=== PATIENT | female | born 1990 ===

== ENCOUNTER 2016-12-24 09:14 | Observation (INO) | payer MEDICAID, OTHER ==
[2016-12-24 09:15] VITALS: BMI 20.9
--- NOTE | 2016-12-24 09:55 | ED PDOC ---
HPI: Abdomen Time Seen by Provider: 12/24/16 09:30 Chief Complaint (Nursing): Abdominal Pain Chief Complaint (Provider): Abdominal Pain History Per: Patient History/Exam Limitations: intoxication Onset/Duration Of Symptoms: Days (x 1) Current Symptoms Are (Timing): Still Present Location Of Pain/Discomfort: Suprapubic (lower abdomen) Additional History Per: Family (mother) Additional Complaint(s): Rebeca is a 26 y/o female with a history of anemia and low blood pressure who presents to the ED for abdominal pain after her mother found her in the street. The patient is 26 weeks , and is currently using heroin and crack. She eloped from the hospital where she was being seen for care. The patient complains of lower abdominal pain, denies vaginal bleeding, and offers no other medical complaints. Patient is in requesting detox and care. Of note: patient was seen in [facility] yesterday and was admitted at [facility]. Per patient's mother the patient eloped from [facility] this morning. PMD: None Provided : 5 Para: 3 (currently ) Past Medical History Reviewed: Historical Data, Nursing Documentation, Vital Signs Vital Signs: Last Vital Signs Temp 98.0 F 12/24/16 16:50 Pulse 84 12/24/16 16:50 Resp 18 12/24/16 16:50 BP 116/63 12/24/16 16:50 Pulse Ox 100 12/24/16 16:53 - Medical History PMH: Anemia Other PMH: low blood pressure - Family History Family History: States: Unknown Family Hx - Living Arrangements Living Arrangements: Other (homeless) - Social History Current smoker - smoking cessation education provided: Yes (2 cigarettes/day) Alcohol: None Drugs: Other (crack, heroin) - Immunization History Hx Tetanus Toxoid Vaccination: Yes Hx Influenza Vaccination: No Hx Pneumococcal Vaccination: No - Home Medications Home Medications: Ambulatory Orders Medication Instructions Recorded Nitrofurantoin Macrocrystals 100 mg PO BID #14 cap 12/24/16 [Macrobid] Multivit/Folic Acid/I 1 tab PO DAILY #30 tab 12/24/16 [] - Allergies Allergies/Adverse Reactions: Allergies Allergy/AdvReac Type Severity Reaction Status Date / Time No Known Allergies Allergy Verified 12/24/16 09:35 Review of Systems ROS Statement: Except As Marked, All Systems Reviewed And Found Negative Gastrointestinal: Positive for: Abdominal Pain (lower abdomen) Genitourinary Female: Negative for: Vaginal Bleeding Physical Exam - Reviewed Nursing Documentation Reviewed: Yes Vital Signs Reviewed: Yes - Physical Exam Appears: Positive for: No Acute Distress Head Exam: Positive for: ATRAUMATIC, NORMAL INSPECTION, NORMOCEPHALIC Skin: Positive for: Normal Color, Warm, Dry Neck: Positive for: Supple Cardiovascular/Chest: Positive for: Regular Rate, Rhythm. Negative for: Murmur Respiratory: Positive for: Normal Breath Sounds, Respiratory Distress. Negative for: Wheezing Gastrointestinal/Abdominal: Positive for: Soft. Negative for: Tenderness Neurologic/Psych: Positive for: Alert, Oriented - Laboratory Results Result Diagrams: 12/24/16 11:16 12/24/16 11:16 - ECG O2 Sat by Pulse Oximetry: 100 (RA) Pulse Ox Interpretation: Normal Medical Decision Making Medical Decision Making: Initial Impression: Lower Abdominal Pain in setting of 26 weeks , Time: 10:11 --Alcohol Serum --Beta-HCG --CMP --Urine Drug Screen --CBC --Urine C&S --1:1 Obs --Urinalysis --US Transvaginal Pelvis 14:29 Patient found to have borderline UTI, given Macrobid. 14:45 US shows normal intrauterine gestation, patient is medically cleared and pending crisis evaluation. 15:00 Patient transferred over to Dr. Goyal pending crisis evaluation. Scribe Attestation: Documented by Stephen Guzman and Deborah Robison, acting as a scribe for Dr. Serjio Atkins. Provider Scribe Attestation: All medical record entries made by the Scribe were at my direction and personally dictated by me. I have reviewed the chart and agree that the record accurately reflects my personal performance of the history, physical exam, medical decision making, and the department course for this patient. I have also personally directed, reviewed, and agree with the discharge instructions and disposition. ED OBSERVATION Date of observation admission: 12/24/16 Time of observation admission: 10:29 - Observation admission statement Patient is being placed in observation because:: Patient with abdominal pain in setting of 26 weeks and history of substance abuse - Goals of Observation Goals of observation are:: Pending medical workup for clearance Crisis evaluation - Progress Note Progress Note: 12/24/16 10:30 --patient is resting comfortably with stable vitals 12/24/16 12:00 Patient resting in room, US performed. Currently pending US read. Disposition - Clinical Impression Clinical Impression: UTI (urinary tract infection), Abdominal pain during , Substance abuse - Patient ED Disposition Is Patient to be Admitted: Transfer of Care - Disposition Disposition: Transfer of Care Disposition Time: 15:00 Condition: GOOD Patient Signed Over To: Jani Goyal
[2016-12-24 11:15] LABS: RBC URINE 5 /hpf (0-3); URINE BACTERIA RARE (<OCC); URINE BILIRUBIN NEGATIVE (NEGATIVE); URINE BLOOD NEGATIVE (NEGATIVE); URINE COLOR AMBER (YELLOW); URINE GLUCOSE (UA) NEG (Normal); URINE KETONE NEGATIVE (NEGATIVE); URINE LEUKOCYTE ESTERASE SMALL Leu/uL (Negative); URINE PROTEIN 100 mg/dL (NEGATIVE); URINE UROBILINOGEN 0.2-1.0 mg/dL (0.2-1.0); WBC URINE 18 /hpf (0-5)
[2016-12-24 11:26] LABS: BASO % 0.2 % (0.0-2.0); EOS # 0.1 K/uL (0.0-0.7); EOS % 0.5 % (0.0-4.0); HEMATOCRIT 28.7 % (34.0-47.0); LYMPH # 1.5 K/uL (1.0-4.3); LYMPH % 10.6 % (20.0-40.0); MEAN CELL VOLUME 93.8 fl (81.0-99.0); MEAN CORPUSCULAR HEMOGLOBIN 31.2 pg (27.0-31.0); MEAN CORPUSCULAR HGB CONC 33.3 g/dL (33.0-37.0); MEAN PLATELET VOLUME 9.1 fl (7.2-11.7); MONO # 0.8 K/uL (0.0-0.8); MONO % 5.9 % (0.0-10.0); NEUT # 11.9 K/uL (1.8-7.0); NEUT % 82.8 % (50.0-75.0); RED CELL DISTRIBUTION WIDTH 12.9 % (11.5-14.5); WHITE BLOOD COUNT 14.3 K/uL (4.8-10.8)
[2016-12-24 11:52] LABS: ALB/GLOB RATIO 1.1 (1.0-2.1); ALCOHOL SERUM < 10 mg/dl (0-10); ALKALINE PHOSPHATASE 62 U/L (38-126); ALT/SGPT 25 U/L (9-52); AST/SGOT 22 U/L (14-36); BILIRUBIN,TOTAL 0.4 mg/dl (0.2-1.3); BLOOD UREA NITROGEN 8 mg/dl (7-17); CALCIUM 8.5 mg/dL (8.4-10.2); CARBON DIOXIDE 22 mmol/L (22-30); CHLORIDE 108 mmol/L (98-107); GFR AFRICAN-AMERICAN > 60; GLUCOSE,RANDOM 83 mg/dL (65-105); POTASSIUM 3.3 MMOL/L (3.6-5.0); SODIUM 142 mmol/l (132-148); TOTAL PROTEIN 6.1 G/DL (6.3-8.2)
[2016-12-24 13:23] VITALS: RESP 18
--- NOTE | 2016-12-24 15:06 | US ---
PROCEDURE: OB Pelvic Ultrasound HISTORY: Lower pelvic pain COMPARISON: None available. FINDINGS: UTERUS: Gestational sac: Single intrauterine gestation. Heart rate: 141 bpm. age (Ultrasound estimated): 26 weeks and 2 days BPD: 16.7 cm corresponding to 26 weeks and 0 days of gestational age. HC: 22.9 cm corresponding to 25 weeks and 0 days of gestational age. AC: 22.1 cm corresponding to 26 weeks and 4 days of gestational age. FL: 4.87 cm corresponding to 26 weeks and 3 days of gestational age. Dyana-gestational hemorrhage: None. Date of delivery (Ultrasound estimated) : 03/30/2017 Placenta is anterior. CERVIX: Long and closed. No cervical abnormality seen. RIGHT OVARY: Not visualized. LEFT OVARY: Not visualized. FREE FLUID: None. OTHER FINDINGS: None. IMPRESSION: Single intrauterine fetus in transverse presentation with mean gestational age of 26 weeks and 2 days. Placenta is anterior. The estimated date of delivery by ultrasound is 03/30/2017. The ultrasound dates lag behind the clinical dates by 11 days. Clinical follow-up is advised. Please note this is a limited ultrasound done in the emergency room an dedicated follow-up anatomic survey is advised.
--- NOTE | 2016-12-24 15:10 | ED PDOC ---
- Laboratory Results Result Diagrams: 12/24/16 11:16 12/24/16 11:16 - ECG O2 Sat by Pulse Oximetry: 100 (RA) Medical Decision Making Medical Decision Makin:00 Patient transferred over to [place] by Dr. Atkins pending crisis evaluation. Scribe Attestation: Documented by Deborah Robison, acting as a scribe for Jani Goyal MD. Provider Scribe Attestation: All medical record entries made by the Scribe were at my direction and personally dictated by me. I have reviewed the chart and agree that the record accurately reflects my personal performance of the history, physical exam, medical decision making, and the department course for this patient. I have also personally directed, reviewed, and agree with the discharge instructions and disposition. Disposition Doctor Will See Patient In The: Office Counseled Patient/Family Regarding: Studies Performed, Diagnosis, Need For Followup - Clinical Impression Clinical Impression: UTI (urinary tract infection), Abdominal pain during , Substance abuse - POA Present On Arrival: None - Disposition Disposition: Routine/Home Disposition Time: 16:19 Condition: GOOD Progress Note - Review of Symptoms Events since last encounter: Time: 1555 Patient seen and evaluated by crisis team. She is stable for discharge home with diagnosis of substance abuse as stated by Dr. Watson. Crisis team also contacted [facility] who is aware of case. Patient to be discharged to OB-ED if she has continued complaints of abdominal pain. Time: 1630 Upon reassessment, patient has no complaints of abdominal pain and is stable for discharge home.
[2016-12-24 16:51] VITALS: BP 116/63; PULSE 84; TEMP 98
[2016-12-24 16:54] VITALS: O2SAT 100
== END 2016-12-24 16:50 | disposition home or self-care (01) ==
LOC: H.ER 09:14 → H.EROBSV 10:28
PROVIDERS: ADMIT Emergency Medicine; ATTEND Emergency Medicine
DX: O23.42 Unspecified infection of urinary tract in pregnancy, second trimester (principal); O99.322 Drug use complicating pregnancy, second trimester; Z3A.26 26 weeks gestation of pregnancy; F11.10 Opioid abuse, uncomplicated; F14.10 Cocaine abuse, uncomplicated; O99.332 Smoking (tobacco) complicating pregnancy, second trimester; Z59.0 Homelessness; F17.210 Nicotine dependence, cigarettes, uncomplicated
CPT/HCPCS: 76815; 80053; 80320; 80324; 80345; 80346; 80349; 80353; 80358; 80361; 81003; 83992; 84702; 85025; 87086; 99283; G0378